=== PATIENT | female | born 1970 | race Native Hawaiian/Other Pacific Islander ===

== ENCOUNTER 2022-04-14 13:41 | Emergency (ER) | payer OTHER ==
[~2022-04-14] VITALS: Ht 172.7 cm; Wt 54.4 kg
[2022-04-14 14:22] LABS: PLATELET COUNT 274 K/uL (152-353)
[2022-04-14 16:25] VITALS: BP 116/59; TEMP 98.1
== END 2022-04-14 16:25 | disposition home or self-care (01) ==
LOC: ED 13:41
PROVIDERS: Emergency Medicine Emergency Medical Services
DX: S40.011A Contusion of right shoulder, initial encounter (principal); S22.49XA Multiple fractures of ribs, unspecified side, initial encounter for closed fracture; R07.89 Other chest pain; V89.2XXA Person injured in unspecified motor-vehicle accident, traffic, initial encounter; Y92.89 Other specified places as the place of occurrence of the external cause
CPT/HCPCS: 36415; 80048; 82150; 83690; 85027; 96360; 96361; 99284; J2270; J2405; Q9963

== ENCOUNTER 2022-10-14 18:11 | Emergency (ER) | payer OTHER ==
[~2022-10-14] VITALS: Ht 172.7 cm; Wt 59.0 kg
[2022-10-14 18:20] VITALS: BP 113/72; TEMP 99.1
== END 2022-10-14 19:32 | disposition home or self-care (01) ==
LOC: ED 18:11
DX: L03.115 Cellulitis of right lower limb (principal); S80.11XA Contusion of right lower leg, initial encounter; W18.09XA Striking against other object with subsequent fall, initial encounter; Y92.098 Other place in other non-institutional residence as the place of occurrence of the external cause
CPT/HCPCS: 99282